=== PATIENT | male | born 1975 | race Caucasian/White ===

== ENCOUNTER 2024-03-05 09:53 | Outpatient (CLI) | payer OTHER, SELFPAY ==
[2024-03-05 10:17] VITALS: BP 140/89; PULSE 73; RESP 16; TEMP 36.3; O2SAT 98; BMI 26.6
[2024-03-05 10:44] VITALS: BP 139/87; PULSE 73; RESP 16; TEMP 36.6; O2SAT 98
[2024-03-05 11:44] VITALS: BP 153/91; PULSE 82; RESP 16; TEMP 36.7; O2SAT 98
[2024-03-05 12:26] VITALS: BP 147/93; PULSE 79; TEMP 36.8
== END 2024-03-05 23:59 | disposition home or self-care (01) ==
LOC: MEDOUTP 09:55
PROVIDERS: Referring Provider Internal Medicine Hematology & Oncology; Visit Provider Internal Medicine Hematology & Oncology
DX: N18.4 Chronic kidney disease, stage 4 (severe) (principal); D63.1 Anemia in chronic kidney disease
CPT/HCPCS: 36430; 86850; 86900; 86901; 86920; 86922; J7040; P9016; A4216

== ENCOUNTER 2024-06-07 08:54 | Outpatient (CLI) | payer OTHER, SELFPAY ==
[2024-06-06 15:08] LABS: Hemoglobin 7.3 g/dL (13.0-16.5)
[2024-06-07 09:43] VITALS: BP 143/90; PULSE 81; RESP 16; TEMP 36.1; O2SAT 96
[2024-06-07 10:05] VITALS: BP 154/98; PULSE 75; RESP 14; TEMP 36.1; O2SAT 99; BMI 26.1
[2024-06-07 10:43] VITALS: BP 135/82; PULSE 85; RESP 16; TEMP 36.2; O2SAT 99
[2024-06-07 11:16] VITALS: BP 120/66; PULSE 92; RESP 14; TEMP 36.2; O2SAT 95
== END 2024-06-07 23:59 | disposition home or self-care (01) ==
LOC: MEDOUTP 08:56
PROVIDERS: PCP Family Medicine; Referring Provider Student in an Organized Health Care Education/Training Program; Visit Provider Student in an Organized Health Care Education/Training Program
DX: N18.6 End stage renal disease (principal); D63.1 Anemia in chronic kidney disease
CPT/HCPCS: 36415; 36430; 85018; 86850; 86900; 86901; P9016; A4216

== ENCOUNTER 2024-08-05 11:51 | Outpatient (CLI) | payer OTHER, SELFPAY ==
[2024-08-05 12:01] VITALS: BP 179/96; PULSE 79; RESP 16; TEMP 36.4; O2SAT 99
[2024-08-05 12:39] VITALS: BP 166/90; PULSE 83; RESP 16; TEMP 36.6
[2024-08-05 13:45] VITALS: BP 163/90; PULSE 79; RESP 16; TEMP 36.4; O2SAT 98
[2024-08-05 14:26] VITALS: BP 162/92; PULSE 83; RESP 16; TEMP 36.8
== END 2024-08-05 23:59 | disposition home or self-care (01) ==
LOC: MEDOUTP 11:52
PROVIDERS: PCP Family Medicine; Referring Provider Internal Medicine Hematology & Oncology; Visit Provider Internal Medicine Hematology & Oncology
DX: N18.4 Chronic kidney disease, stage 4 (severe) (principal); D63.1 Anemia in chronic kidney disease
CPT/HCPCS: 36430; 86850; 86900; 86901; P9040; A4216